=== PATIENT | female | born 1985 | race Asian ===

== ENCOUNTER 2017-10-29 07:27 | Inpatient (IN) | payer SELFPAY ==
[~2017-10-29] VITALS: Ht 152.4 cm; Wt 63.5 kg
[2017-10-29] MEDS ORDERED: LACTATED RINGERS 1,000 ML IV SCH (07:41)
[2017-10-29] MEDS ORDERED: CITRIC ACID/SODIUM CITRATE 30 ML UDC PO SCH (07:45)
[2017-10-29] MEDS ORDERED: PREN-380 PO (08:10)
[2017-10-29] MEDS ORDERED: [UNRECOGNIZED DRUG - CODE] PO (08:10)
[2017-10-29 08:34] LABS: BASOPHILS % (AUTO) 0.4 % (0.0-2.0); HEMATOCRIT 37.8 % (36-48); HEMOGLOBIN 12.8 g/dL (12.0-16.0); LYMPHOCYTES # (AUTO) 0.6 K/uL (2.5-16.5); LYMPHOCYTES % (AUTO) 6.6 % (20.5-51.1); MEAN CORPUSCULAR HEMOGLOBIN 30 pg (27-31); MEAN CORPUSCULAR HGB CONC 34 g/dL (33-37); MEAN CORPUSCULAR VOLUME 88.8 fL (80-94); MONOCYTES # (AUTO) 0.2 K/uL (0.8-1.0); MONOCYTES % (AUTO) 2.2 % (1.7-9.3); NEUTROPHILS # (AUTO) 7.7 K/uL (1.8-7.7); NEUTROPHILS % (AUTO) 90.8 % (42.2-75.2); PLATELET COUNT (AUTO) 99 K/uL (140-450); RED BLOOD CELL COUNT(AUTO) 4.26 MIL/uL (4.20-5.40); RED CELL DISTRIBUTION WIDTH 19.1 % (11.6-13.7); WHITE BLOOD COUNT (AUTO) 8.5 K/uL (4.8-10.8)
[2017-10-29 08:36] VITALS: BP 106/58
[2017-10-29 08:42] LABS: APPEARANCE,URINE CLEAR (CLEAR); BILIRUBIN,URINE NEGATIVE (NEGATIVE); BLOOD, URINE NEGATIVE (NEGATIVE); COLOR,URINE YELLOW (YELLOW); LEUKOCYTE ESTERASE ,URINE NEGATIVE (NEGATIVE); NITRITE, URINE NEGATIVE (NEGATIVE); PH,URINE 7.5 (5.0-9.0); UGLUCOSE NEGATIVE (NEGATIVE)
--- NOTE | 2017-10-29 08:45 | NUR ---
PATIENT HAS BEEN SCREENED AND CATEGORIZED LOW NUTRITION RISK. PATIENT WILL BE SEEN WITHIN 7 DAYS OF ADMISSION. 11/04/[address]
[2017-10-29 09:02] LABS: ALBUMIN 3.1 g/dL (3.4-5.0); ANION GAP 14.8 (8-16); CARBON DIOXIDE 25.8 mmol/L (21-32); CREATININE 0.8 mg/dL (0.6-1.3); POTASSIUM 3.6 mmol/L (3.5-5.1); TOTAL BILIRUBIN 0.4 mg/dL (0.0-1.0)
[2017-10-29 09:02] LABS: PROTHROMBIN TIME 9.1 secs (10.8-13.4)
[2017-10-29] MEDS ORDERED: OXYTOCIN 10 UNITS/ML VIAL ONE (10:20)
[2017-10-29] MEDS ORDERED: KETAMINE 500 MG/5 ML VIAL ONE (10:29)
[2017-10-29] MEDS ORDERED: MIDAZOLAM 2 MG/2 ML VIAL ONE (10:29)
[2017-10-29] MEDS ORDERED: fentaNYL 0.05 MG/ML VIAL ONE (10:29)
[2017-10-29] MEDS ORDERED: MORPHINE PRES FREE 10 MG/10 ML AMP IV ONE (10:30)
[2017-10-29] MEDS ORDERED: BUPIVACAINE-MPF 0.75% 10 ML VIAL INJ ONE (10:30)
[2017-10-29] MEDS ORDERED: diphenhydrAMINE 50 MG/ML VIAL IVP PRN (11:10)
[2017-10-29] MEDS ORDERED: ONDANSETRON 4 MG/2 ML VIAL IVP PRN (11:10)
[2017-10-29] MEDS ORDERED: KETOROLAC 30 MG/ML VIAL IVP PRN ×3 (11:10→14:45)
[2017-10-29] MEDS ORDERED: ONDANSETRON 4 MG/2 ML VIAL ONE (13:32)
[2017-10-29] MEDS ORDERED: OXYTOCIN 20 UNITS in LACTATED RINGERS 1,000 ML IV SCH (14:24)
[2017-10-29] MEDS ORDERED: HYDROmorphone 1 MG/ML AMP IVP PRN ×2 (14:25→14:45)
[2017-10-29] MEDS ORDERED: MEASLES, MUMPS, AND RUBELLA 1 VIAL SQVAC PRN ×2 (14:25→14:45)
--- NOTE | 2017-10-29 16:25 | NUR ---
AWAKE AND ALERT RESPONSIVE TO HOUSEKEEPER CAREGIVER VERBAL COMMANDS TOLERATED INCENTIVE SPIROMETRY THERAPY WELL WITHOUT INCIDENT ENCOURAGED PATIENT WITH ACKNOWLEDGEMENT TO USE EVERY 1-2 HOURS WHILE AWAKE
[2017-10-29] MEDS ORDERED: predniSONE 20 MG TAB PO SCH ×2 (20:45)
[2017-10-29] MEDS ORDERED: OXYTOCIN 20 UNITS/LR PREMIX 1,000 ML IV ONE (21:01)
[2017-10-29] MEDS: OXYTOCIN 20 UNITS in LACTATED RINGERS 1,000 ML IV SCH (21:03)
[2017-10-30] MEDS: OXYTOCIN 20 UNITS in LACTATED RINGERS 1,000 ML IV SCH (05:47)
[2017-10-30 06:26] LABS: BASOPHILS % (AUTO) 0.3 % (0.0-2.0); EOSINOPHILS % (AUTO) 0.2 % (0.0-4.0); HEMATOCRIT 27.5 % (36-48); HEMOGLOBIN 9.2 g/dL (12.0-16.0); LYMPHOCYTES % (AUTO) 11.7 % (20.5-51.1); MEAN CORPUSCULAR HEMOGLOBIN 30 pg (27-31); MEAN CORPUSCULAR HGB CONC 34 g/dL (33-37); MONOCYTES # (AUTO) 0.6 K/uL (0.8-1.0); MONOCYTES % (AUTO) 6.9 % (1.7-9.3); NEUTROPHILS # (AUTO) 7.2 K/uL (1.8-7.7); NEUTROPHILS % (AUTO) 80.9 % (42.2-75.2); PLATELET COUNT (AUTO) 84 K/uL (140-450); RED BLOOD CELL COUNT(AUTO) 3.09 MIL/uL (4.20-5.40); RED CELL DISTRIBUTION WIDTH 20.3 % (11.6-13.7)
[2017-10-30] MEDS ORDERED: OXYTOCIN 10 UNITS/ML VIAL ONE (06:43)
[2017-10-30] MEDS ORDERED: predniSONE 20 MG TAB PO SCH (08:00)
[2017-10-30] MEDS ORDERED: ACETAMINOPHEN 325 MG TAB PO PRN ×2 (22:00)
[2017-10-31] MEDS ORDERED: IBUPROFEN 600 MG TAB PO PRN ×2 (08:00)
[2017-10-31] MEDS ORDERED: oxyCODONE/APAP 5/325 MG 1 TAB TAB PO PRN ×2 (08:00)
[2017-10-31] MEDS ORDERED: SODIUM PHOSPHATE 118 ML ENEM RC PRN (08:00)
[2017-10-31] MEDS ORDERED: DOCUSATE SODIUM 100 MG GELCAP PO PRN (08:00)
[2017-10-31] MEDS ORDERED: predniSONE 20 MG TAB PO SCH ×2 (08:00)
[2017-10-31] MEDS ORDERED: SIMETHICONE 80 MG TAB.CHEW PO PRN ×2 (08:00→14:45)
[2017-10-31] MEDS ORDERED: BISACODYL 5 MG TABEC PO PRN ×2 (08:00)
[2017-10-31] MEDS: DOCUSATE SODIUM 100 MG GELCAP PO PRN ×2 (08:37→20:55)
[2017-10-31] MEDS: predniSONE 20 MG TAB PO SCH (08:42)
[2017-10-31] MEDS: SODIUM PHOSPHATE 118 ML ENEM RC PRN (14:01)
[2017-11-01] MEDS: predniSONE 20 MG TAB PO SCH (08:05)
[2017-11-01] MEDS: SODIUM PHOSPHATE 118 ML ENEM RC PRN (14:51)
[2017-11-02] MEDS ORDERED: predniSONE 10 MG, predniSONE 40 MG PO SCH ×2 (09:00)
[2017-11-02] MEDS ORDERED: predniSONE 20 MG TAB PO SCH (09:00)
[2017-11-02] MEDS ORDERED: FERR325E14 PO (11:15)
[2017-11-02] MEDS ORDERED: IBUP-1842 PO (11:17)
[2017-11-02] MEDS ORDERED: PRED5TAB7 PO (14:08)
== END 2017-11-02 15:35 | disposition home or self-care (01) | DRG 765 ==
LOC: MLD 07:27 → MFCC 10:30
PROVIDERS: ADMIT Obstetrics & Gynecology; ATTEND Obstetrics & Gynecology
PROC: 10D00Z1 Extraction of Products of Conception, Low, Open Approach (ICD-10-PCS; principal; 2017-11-02)
DX: O34.211 Maternal care for low transverse scar from previous cesarean delivery (principal); D69.3 Immune thrombocytopenic purpura; O99.12 Other diseases of the blood and blood-forming organs and certain disorders involving the immune mechanism complicating childbirth; Z37.0 Single live birth; Z3A.38 38 weeks gestation of pregnancy; E01.0 Iodine-deficiency related diffuse (endemic) goiter; O99.284 Endocrine, nutritional and metabolic diseases complicating childbirth
CPT/HCPCS: 36415; 80053; 81003; 85025; 85610; 85730; 86592; 86886; 86900; 86901; 87086; 90707; 90715; J0690; J1885; J2250; J2270; J2405; J2590; J3010; J3490; J7060; J7120; J7512